=== PATIENT | male | born 1955 | race Caucasian/White ===

== ENCOUNTER 2019-11-13 22:44 | Observation (INO) | payer MEDICARE, BC ==
[~2019-11-13] VITALS: Ht 172.7 cm; Wt 73.9 kg
[2019-11-13] MEDS ORDERED: CEPHALEXIN500 MG PO (22:59)
--- NOTE | 2019-11-14 01:50 | NUR ---
PT ARRIVED TO THE [facility] VIA STRETCHER WITH HIS AT BEDSIDE AT 0120. HE IS ALERT AND ORIENTED AND DENIES PAIN AND SOB. ADMISSION HX COMPLETE AND ASSESSMENT. PT'S WENT HOME FOR THE NIGHT. PT MADE MULTIPLE COMMENTS ABOUT POSSIBLY LEAVING DURING THE NIGHT SO HE WANTED TO KEEP HIS WALLET AND PHONE NEAR HIM. PT AGREED TO STAY AND BE MONITORED ON TELE OVERNIGHT BUT REFUSED IV FLUIDS INFUSING STATING HE "GETS UP ENOUGH TO PEE AT NIGHT". PT IS ORIENTED TO ROOM AND CALL LIGHT. FRESH WATER AND WARM BLANKETS PROVIDED AND PT DENIES FURTHER NEEDS. CALL LIGHT IS CLOSE.
--- NOTE | 2019-11-14 03:04 | NUR ---
PT'S HR JUMPED UP TO 150'S CCU CALLED. CHECKED ON PT AND HE IS USING THE URINAL. HE IS NOW BACK IN BED AND HR IS BETWEEN 80'S TO 100. PT DENIES ANY SYMPTOMS AND DENIES NEEDS. CALL LIGHT IS CLOSE.
[2019-11-14] MEDS ORDERED: PRILOSEC OTC20 MG PO (05:19)
[2019-11-14] MEDS ORDERED: ADULT ASPIRIN R81 MG (05:20)
--- NOTE | 2019-11-14 05:28 | NUR ---
PT IS RESTING WITH EYES CLOSED, RR IS EVEN AND NONLABORED. CALL LIGHT IS CLOSE.
--- NOTE | 2019-11-14 06:08 | EKG ---
[facility] [address] [place] [address] Signed Atrial fibrillation with rapid ventricular response Marked ST abnormality, possible inferior subendocardial injury Abnormal ECG No previous ECGs available Confirmed by MELI GRACE MD ([id number]) on 11/14/2019 6:08:25 AM Electronically Signed By: MELI GRACE MD 11/14/1908 PATIENT NAME: ZOE AKBAR Dalia Electrocardiogram DATE OF : 53 PHYSICIAN: MELI GRACE MD REPORT #: [id number] REPORT IS CONFIDENTIAL AND NOT TO BE RELEASED WITHOUT AUTHORIZATION
--- NOTE | 2019-11-14 06:37 | NUR ---
TALKED TO DR GRACE ABOUT PT REFUSING IV FLUIDS LAST NIGHT. NO NEW ORDERS RECEIVED.
--- NOTE | 2019-11-14 06:49 | NUR ---
VS & I&O'S ENTERED. PT DENIES PAIN, SOB, PALPITATIONS AND DIZZINESS. PT ALSO DENIES FURTHER NEEDS. HR IS IN 70'S AT THIS TIME. CALL LIGHT IS CLOSE.
--- NOTE | 2019-11-14 08:17 | NUR ---
PT IN BED HEART RATE DECREASED TO THE 40'S PT IN BED APPEARED TO BE SLEEPING AND DENIES THAT HE HAS A-FIB, VITAL TAKEN AND DR GRACE NOTIFIED THE 09 CARDIZEM WILL NOT BE GIVEN PER ORDERS.
== END 2019-11-14 10:22 | disposition home or self-care (01) ==
LOC: ED 22:44 → MS 22:46
PROVIDERS: ADMIT Internal Medicine; ATTEND Internal Medicine
DX: I48.0 Paroxysmal atrial fibrillation (principal); R00.1 Bradycardia, unspecified; Z20.828 Contact with and (suspected) exposure to other viral communicable diseases; Z88.2 Allergy status to sulfonamides; Z79.899 Other long term (current) drug therapy; Z79.82 Long term (current) use of aspirin
CPT/HCPCS: 71045; 80053; 83735; 84443; 84484; 85025; 93005; 93010; 96361; 96374; 99285-25; C9803; G0378; J7030

== ENCOUNTER 2019-11-29 18:32 | Emergency (ER) | payer MEDICARE, BC ==
[~2019-11-29] VITALS: Ht 172.7 cm; Wt 73.9 kg
[~2019-11-29 18:32] MED LIST: ADULT ASPIRIN R81 MG; CEPHALEXIN500 MG PO; PRILOSEC OTC20 MG PO
--- OUTSIDE RECORDS SUMMARY | 2019-11-29 18:36 | XMS ---
PreManage Notification: ZOE AKBAR [employer] Events No recent Security Events currently on file CRITERIA MET - [facility] - 2 Visits in 30 Days CARE PROVIDERS KEL[facility] Current PHONE: [phone] Se has no Care Guidelines for this patient. E.Alfredito VISIT COUNT (12 MO.) 2 [facility] TOTAL 2 NOTE: Visits indicate total known visits. ED/UCC VISIT TRACKING (12 MO.) 11/29/2019 18:33 [facility] TYPE: Emergency COMPLAINT: - POSS INFECTION IN EYE 11/13/2019 22:45 [facility] TYPE: Emergency COMPLAINT: - HIGH PULSE AND BLOOD PRESSURE INPATIENT VISIT TRACKING (12 MO.) 11/13/2019 22:46 [facility] TYPE: Observation COMPLAINT: - A-FIB RVR DIAGNOSES: - Contact with and (suspected) exposure to other viral communic - residential (current) use of aspirin - Palpitations - Paroxysmal atrial fibrillation - Other residential (current) drug therapy - Bradycardia, unspecified - Allergy status to sulfonamides status [email or web address]
[2019-11-29] MEDS ORDERED: VITAMIN D3125 MC2 PO (20:53)
[2019-11-29] MEDS ORDERED: ATORVASTATIN CA40 MG PO (20:53)
[2019-11-29] MEDS ORDERED: KEFLEX500 MG PO (21:24)
== END 2019-11-29 21:39 | disposition home or self-care (01) ==
LOC: ED 18:32
DX: L08.9 Local infection of the skin and subcutaneous tissue, unspecified (principal); I48.91 Unspecified atrial fibrillation; Z88.2 Allergy status to sulfonamides; Z79.899 Other long term (current) drug therapy; Z79.82 Long term (current) use of aspirin
CPT/HCPCS: 99283

== ENCOUNTER 2020-10-06 10:05 | Emergency (ER) | payer MEDICARE, BC ==
[~2020-10-06] VITALS: Ht 177.8 cm; Wt 77.1 kg
[~2020-10-06 10:05] MED LIST changes: +ATORVASTATIN CA40 MG PO; +KEFLEX500 MG PO; +VITAMIN D3125 MC2 PO
[2020-10-06] MEDS ORDERED: ELIQUIS5 MG PO (10:18)
--- NOTE | 2020-10-06 19:18 | EKG ---
[facility] [address] [facility] [place] [address] Signed Marked sinus bradycardia Abnormal ECG When compared with ECG of 13-NOV-2019 22:54, Sinus rhythm has replaced Atrial fibrillation Vent. rate has decreased BY [address] no longer depressed in Inferior leads ST no longer depressed in Anterolateral leads T wave inversion no longer evident in Inferior leads Nonspecific T wave abnormality no longer evident in Lateral leads Confirmed by DIANE CORADO DO ([id number]) on 10/06/2020 7:18:02 PM Electronically Signed By: DIANE CORADO DO 10/06/201917 PATIENT NAME: ZOE AKBAR Electrocardiogram DATE OF : 53 PHYSICIAN: DIANE CORADO DO REPORT #: [id number] REPORT IS CONFIDENTIAL AND NOT TO BE RELEASED WITHOUT AUTHORIZATION
== END 2020-10-06 15:00 | disposition home or self-care (01) ==
LOC: ED 10:05
DX: R00.1 Bradycardia, unspecified (principal); Z20.822 Contact with and (suspected) exposure to COVID-19; I48.91 Unspecified atrial fibrillation; F17.200 Nicotine dependence, unspecified, uncomplicated; Z88.2 Allergy status to sulfonamides; Z79.899 Other long term (current) drug therapy
CPT/HCPCS: 71045; 80053; 83735; 84443; 84484; 85025; 85610; 93005; 93010; 99285-25; C9803; U0003

== ENCOUNTER 2021-05-12 09:25 | Emergency (ER) | payer MEDICARE, BC ==
[~2021-05-12] VITALS: Ht 177.8 cm; Wt 79.4 kg
[~2021-05-12 09:25] MED LIST changes: +ELIQUIS5 MG PO
--- NOTE | 2021-05-12 16:55 | EKG ---
[facility] [address] [facility] [place] [address] Signed Atrial-paced rhythm Abnormal ECG No previous ECGs available Confirmed by MELI GRACE MD ([id number]) on 05/12/2021 4:55:03 PM Electronically Signed By: MELI GRACE MD 05/12/21 1655 PATIENT NAME: ZOE AKBAR Electrocardiogram DATE OF : 53 PHYSICIAN: MELI GRACE MD REPORT #: [id number] REPORT IS CONFIDENTIAL AND NOT TO BE RELEASED WITHOUT AUTHORIZATION
== END 2021-05-12 16:13 | disposition home or self-care (01) ==
LOC: ED 09:25
DX: R53.83 Other fatigue (principal); R07.89 Other chest pain; I48.91 Unspecified atrial fibrillation; F17.200 Nicotine dependence, unspecified, uncomplicated; Z88.2 Allergy status to sulfonamides; Z79.82 Long term (current) use of aspirin; Z79.01 Long term (current) use of anticoagulants; Z79.899 Other long term (current) drug therapy; Z20.822 Contact with and (suspected) exposure to COVID-19
CPT/HCPCS: 36415; 71045; 80053; 81001; 82652; 83735; 84443; 84484; 85025; 93005; 93010; 99285-25; C9803; U0003

== ENCOUNTER 2021-08-29 08:43 | Emergency (ER) | payer MEDICARE, BC ==
[~2021-08-29] VITALS: Ht 177.8 cm; Wt 84.9 kg
== END 2021-08-29 11:00 | disposition home or self-care (01) ==
LOC: ED 08:43
DX: U07.1 COVID-19 (principal); F17.200 Nicotine dependence, unspecified, uncomplicated; Z79.01 Long term (current) use of anticoagulants; Z79.899 Other long term (current) drug therapy; Z79.82 Long term (current) use of aspirin; Z88.2 Allergy status to sulfonamides; Z95.0 Presence of cardiac pacemaker
CPT/HCPCS: 36415; 80048; 85025; 96374; 99283-25

== ENCOUNTER 2022-01-30 15:16 | Emergency (ER) | payer MEDICARE, BC ==
[~2022-01-30] VITALS: Ht 177.8 cm; Wt 84.8 kg
[2022-01-30] MEDS ORDERED: NITROGLYCERIN0.4 MG SL (15:49)
[2022-01-30] MEDS ORDERED: METOPROLOL SUCC25 MG PO (15:50)
[2022-01-30] MEDS ORDERED: ISOSORBIDE MONO30 MG PO (15:50)
[2022-01-30] MEDS ORDERED: CLOPIDOGREL75 MG PO (15:51)
--- NOTE | 2022-02-01 23:13 | EKG ---
[facility] [address] [place] [address] Signed Atrial-paced rhythm Abnormal ECG When compared with ECG of 12-MAY-2021 09:29, No significant change was found Confirmed by Bela Jhaveri MD () on 02/01/2022 11:12:49 PM Electronically Signed By: BELA JHAVERI MD 02/01/22 2313 PATIENT NAME: ZOE AKBAR Electrocardiogram DATE OF : 53 PHYSICIAN: BELA JHAVERI MD REPORT #: [id number] REPORT IS CONFIDENTIAL AND NOT TO BE RELEASED WITHOUT AUTHORIZATION
== END 2022-01-30 18:28 | disposition home or self-care (01) ==
LOC: ED 15:16
DX: R07.89 Other chest pain (principal); I48.91 Unspecified atrial fibrillation; K21.9 Gastro-esophageal reflux disease without esophagitis; F17.200 Nicotine dependence, unspecified, uncomplicated; Z88.2 Allergy status to sulfonamides; Z79.899 Other long term (current) drug therapy; Z79.82 Long term (current) use of aspirin
CPT/HCPCS: 36415; 71045; 80053; 83735; 84484; 85025; 85379; 93005; 93010; 99285-25; A9270